=== PATIENT | male | born 1965 | race Caucasian/White ===

== ENCOUNTER 2022-04-28 00:15 | Day surgery (SDC) | payer OTHER, SELFPAY ==
[2022-04-15 10:49] VITALS: BMI 34.5
--- NOTE | 2022-04-27 11:41 | PM.HPGS ---
History of Present Illness History of Present Illness Consent: Risks, benefits, and alternatives have been discussed and questions answered. Patient agrees to proceed with procedure. Chief complaint: hx of colon polyps, neoplasm screening Narrative: Fabian Lilly is a 56 year old male Was referred for colon cancer screening. His father had colon cancer. Review of Systems Review of Systems: All systems reviewed & are unremarkable except as noted in HPI and below PMFSH Surgical History Surgical History History of abdominoplasty History of cholecystectomy Family History Family History Father Carcinoma of colon Family history of malignant neoplasm Mother Family history of malignant neoplasm of breast in first degree relative Family history of malignant neoplasm Social History Social History Smoking status: Never smoker Second hand tobacco smoke exposure: No Alcohol intake: never Substance use: never Substance use type: does not use Living arrangements: with family Gender identity (if verbalized by the patient): Male Sexual Orientation (if Verbalized by the Patient): Straight or Heterosexual Spiritual care concerns: No Meds Home Medications and Allergies Home Medications Medication Instructions Recorded Confirmed Type atorvastatin 20 mg tablet See Rx Instructions .Route 04/08/22 04/28/22 Rx .COMPLEX #30 tabs Allergies Allergy/AdvReac Type Severity Reaction Status Date / Time No Known Allergies Allergy Verified 04/28/22 07:04 Exam Resp: Auscultation: clear to auscultation bilaterally Cardio: Rate: regular rate Rhythm: regular rhythm GI: GI Palp: Yes Soft to palpation and No Tenderness to palpation present (GI) Assessment and Plan Assessment and plan (1) Colon cancer screening: Code(s): Z12.11 - Encounter for screening for malignant neoplasm of colon Status: Acute Assessment and Plan: Colonoscopy with possible biopsy or polypectomy or cautery or injection of substances.
[2022-04-28 07:05] VITALS: BP 122/82; PULSE 71; RESP 18; TEMP 36.3; O2SAT 100
[2022-04-28] MEDS: LACTATED RINGERS 1,000 ML 150 ML IV CONT (07:21)
--- NOTE | 2022-04-28 07:48 | P.PNAN_ITS ---
Anes - Initial Pre Proc Eval Procedure: Operation Date: 04/28/22 08:00 Proposed Procedures p Screening Colonoscopy - Robbin Sandoval MD Date/Time: 04/28/22 07:48 Surgeon: Robbin Sandoval MD Pre Op Diagnosis: hx of colon polyps, neoplasm screening Patient Data Age: 56 Gender: M Height: 1.7 m Weight: 107.7 kg Last Vital Signs Temp 36.3 C L 04/28/22 07:05 Pulse 71 04/28/22 07:05 Resp 18 04/28/22 07:05 BP 122/82 04/28/22 07:05 Pulse Ox 100 04/28/22 07:05 O2 Del Method Room Air 04/28/22 07:05 Allergies Allergy/AdvReac Type Severity Reaction Status Date / Time No Known Allergies Allergy Verified 04/28/22 07:04 Home Medications Medication Instructions Recorded Confirmed Type atorvastatin 20 mg tablet See Rx Instructions .Route 04/08/22 04/28/22 Rx .COMPLEX #30 tabs Patient hx anesthesia problems: none Family hx anesthesia problems: none Results Review: All pre-operative results and documents have been reviewed as part of the pre- operative evaluation. [facility] Past Medical History Medical History (Updated 04/28/22 @ 07:49 by Maxim Mccoy MD) Obesity Pure hypercholesterolemia, unspecified Surgical History Surgical History History of abdominoplasty History of cholecystectomy Family History Family History Father Carcinoma of colon Family history of malignant neoplasm Mother Family history of malignant neoplasm of breast in first degree relative Family history of malignant neoplasm Social History Social History Smoking status: Never smoker Second hand tobacco smoke exposure: No Alcohol intake: never Substance use: never Substance use type: does not use Living arrangements: with family Gender identity (if verbalized by the patient): Male Sexual Orientation (if Verbalized by the Patient): Straight or Heterosexual Spiritual care concerns: No Anes - Eval Final PreProcedure Day of Procedure 04/28/22 07:48 Patient weight: obese Heart: regular rate and rhythm Lungs: clear to auscultation and normal air movement Airway: Mallampati scale class II Neurological: alert and oriented Last oral intake: >/= 8 hours ASA classification: II Emergent: no Anesthetic plan: proceed Anesthesia type and monitoring: general GIVS Results Review: All pre-operative results and documents have been reviewed as part of the pre- operative evaluation. Informed Consent: The patient's anesthetic plan and its attendant risks and benefits were discussed with the patient/family/POA. Questions were solicited and answers provided to the satisfaction of the patient/family/POA.
[2022-04-28 08:10] VITALS: BP 102/60; PULSE 60; RESP 22; O2SAT 98
[2022-04-28 08:20] VITALS: BP 113/61; PULSE 66; RESP 20; O2SAT 100
[2022-04-28 08:30] VITALS: BP 114/62; PULSE 63; RESP 17; O2SAT 100
== END 2022-04-28 08:35 | disposition home or self-care (01) ==
PROVIDERS: PCP Family Medicine; Visit Provider Internal Medicine Gastroenterology
PROC: 0DJD8ZZ Inspection of Lower Intestinal Tract, Via Natural or Artificial Opening Endoscopic (ICD-10-PCS; CPT 45378; principal; 2022-04-28 08:00)
DX: Z12.11 Encounter for screening for malignant neoplasm of colon (principal); Z80.0 Family history of malignant neoplasm of digestive organs; E78.00 Pure hypercholesterolemia, unspecified; E66.9 Obesity, unspecified; Z68.37 Body mass index [BMI] 37.0-37.9, adult
CPT/HCPCS: 45378; J2704; J7120

== ENCOUNTER 2024-08-02 11:22 | Outpatient (CLI) | payer OTHER, SELFPAY ==
--- NOTE | ~2024-08-02 | XR_ITS ---
Clinical Indication: Cough PA and lateral views of the chest: Comparison: None Findings: The lungs are clear, without evidence of focal consolidation or pleural effusion. Cardiome diastinal silhouette is within normal limits. Bones and soft tissues are unremarkable. Impression: Normal chest. Reviewed, dictated and finalized at location . Impression: Normal chest.
== END 2024-08-02 11:23 | disposition home or self-care (01) ==
LOC: MICIMG 11:23
PROVIDERS: PCP Family Medicine; Visit Provider Family Medicine
DX: R05.9 Cough, unspecified (principal)
CPT/HCPCS: 71046